=== PATIENT | female | born 1985 | race American Indian/Alaskan Native ===

== ENCOUNTER 2017-09-10 16:40 | Emergency (ER) | payer MEDICAID ==
[2017-09-10 17:54] LABS: HCG Qualitative,Urine Negative (Negative)
[2017-09-10] MEDS ORDERED: NORCO 5/325 ONE (18:02)
[2017-09-10] MEDS ORDERED: NORCO 5/325 PO ONE (18:04)
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
--- NOTE | 2017-09-10 20:03 | Cat Scan Report ---
FINAL REPORT PROCEDURE: CT head without contrast. TECHNIQUE: Computerized tomography of the head was performed without contrast material. HISTORY: Headache. COMPARISON: No prior studies are available for comparison. FINDINGS: The ventricles are normal in size. There is a patent cavum septum pellucidum. There are no mass lesions. There is no intracranial hemorrhage. The calvarium appears intact. The mastoid air cells and paranasal sinuses are clear as far as visualized. IMPRESSION: Normal study.
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
[2017-09-10 21:52] VITALS: BP 131/80
== END 2017-09-10 23:30 | disposition other institution (70) ==
LOC: ED 16:40
DX: S02.40DA Maxillary fracture, left side, initial encounter for closed fracture (principal); S01.21XA Laceration without foreign body of nose, initial encounter; M54.5 Low back pain; R07.81 Pleurodynia; J45.909 Unspecified asthma, uncomplicated; F17.200 Nicotine dependence, unspecified, uncomplicated; Y04.8XXA Assault by other bodily force, initial encounter; Y93.89 Activity, other specified; Y92.89 Other specified places as the place of occurrence of the external cause; Y99.8 Other external cause status
CPT/HCPCS: 70450; 70486; 81025; 99285